=== PATIENT | male | born 1990 | race American Indian/Alaskan Native ===

== ENCOUNTER 2017-03-11 00:32 | Emergency (ER) | payer SELFPAY ==
[2017-03-11 01:13] LABS: Bilirubin,Urine NEG (Negative); Blood,Urine NEG (Negative); Ketones,Urine NEG (Negative); Leukocyte Esterase,Urine NEG (Negative); Mucus,Urine FEW /HPF; Nitrite,Urine NEG (Negative); Protein,Urine <15 mg/dL mg/dL (Negative); WBC,Urine < 1.0 /HPF (0.0-6.0)
--- NOTE | 2017-03-11 02:14 | Ultrasound Report ---
FINAL REPORT PROCEDURE: US TESTICULAR DOPPLER COMP TECHNIQUE: Real-time haq-scale and color flow Doppler sonography in multiple planes of the scrotum, testicles, and epididymes was performed. Velocity spectral waveform analysis Doppler imaging of the arterial inflow and venous outflow of the testicles was performed with image documentation. [place] [address] [place] [address] HISTORY: pain COMPARISON: No prior studies are available for comparison. FINDINGS: RIGHT TESTICLE: Size: 4.4 x 2.5 x 2.9 cm . Appearance: Normal size and echotexture . Arterial blood flow: Normal spectral waveforms, flow velocities and color flow images.. Venous blood flow: Normal spectral waveforms and color flow images. Right epididymis: Normal size and echotexture . Hydrocele: None . LEFT TESTICLE Size: 4.3 x 1.9 x 3.3 cm . Appearance: Normal size and echotexture . Arterial blood flow: Normal spectral waveforms, flow velocities and color flow images.. Venous blood flow: Normal spectral waveforms and color flow images. Leftepididymis: Normal size and echotexture . Hydrocele: None . IMPRESSION: Normal Examination
[2017-03-11] MEDS ORDERED: ROCEPHIN IM ONE (03:34)
[2017-03-11] MEDS ORDERED: XYLOCAINE 1% MPF 5 mL INFILTRATI ONE (03:34)
[2017-03-11] MEDS ORDERED: ZITHROMAX PO ONE (03:34)
--- NOTE | 2017-03-11 03:39 | Emergency Department Report ---
ED Male HPI - General Chief complaint: Urogenital-Male Stated complaint: PASIN WHEN URINATION Time Seen by Provider: 03/11/17 03:33 Source: patient Mode of arrival: Ambulatory Limitations: No Limitations - History of Present Illness Initial comments: penile sore dysuria frequency urgency x 2 month dx with chlamyidia 2 months ago failed to complete tx regimen Location: penis Radiation: none Severity scale (0 -10): 4 Quality: burning Consistency: intermittent Improves with: none Worsens with: urination, palpation discharge, dysuria, other (chancre). denies: swelling, mass, rash, urinary retention, blood in urine, fever, nausea/vomiting, incontinence - Related Data Sexually active: Yes Previous Rx's Medication Instructions Recorded Last Taken Type Doxycycline [Vibramycin CAP] 100 mg PO BID #20 capsule 03/11/17 Unknown Rx metroNIDAZOLE [Flagyl] 2,000 mg PO ONCE #4 tab 03/11/17 Unknown Rx Allergies Allergy/AdvReac Type Severity Reaction Status Date / Time No Known Allergies Allergy Verified 03/11/17 00:46 ED Review of Systems ROS: Stated complaint: PASIN WHEN URINATION Other details as noted in HPI Constitutional: denies: chills, fever Eyes: denies: eye pain, eye discharge, vision change ENT: denies: ear pain, throat pain Respiratory: denies: cough, shortness of breath, wheezing Cardiovascular: denies: chest pain, palpitations Endocrine: no symptoms reported Gastrointestinal: denies: abdominal pain, nausea, diarrhea Genitourinary: urgency, dysuria, frequency, discharge. denies: hematuria, testicular pain, testicular mass Musculoskeletal: denies: back pain, joint swelling, arthralgia Skin: lesions. denies: rash Neurological: denies: headache, weakness, paresthesias Psychiatric: denies: anxiety, depression Hematological/Lymphatic: denies: easy bleeding, easy bruising ED Past Medical Hx - Past Medical History Previous Medical History?: No - Surgical History Past Surgical History?: No - Social History Smoking Status: Current Some Day Smoker Substance Use Type: Marijuana - Medications Home Medications: Home Medications Medication Instructions Recorded Confirmed Last Taken Type Doxycycline [Vibramycin CAP] 100 mg PO BID #20 capsule 03/11/17 Unknown Rx metroNIDAZOLE [Flagyl] 2,000 mg PO ONCE #4 tab 03/11/17 Unknown Rx ED Physical Exam - General Limitations: No Limitations General appearance: alert, in no apparent distress - Head Head exam: Present: atraumatic, normocephalic - Eye Eye exam: Present: normal appearance - ENT ENT exam: Present: mucous membranes moist - Neck Neck exam: Present: normal inspection - Respiratory Respiratory exam: Present: normal lung sounds bilaterally. Absent: respiratory distress - Cardiovascular Cardiovascular Exam: Present: regular rate, normal rhythm. Absent: systolic murmur, diastolic murmur, rubs, gallop - GI/Abdominal GI/Abdominal exam: Present: soft, normal bowel sounds - exam: Present: circumcision, other (chancre sore penile shaft ). Absent: testicular tenderness, urethral discharge, scrotal swelling, vertical testicular lie External exam: Present: lesions. Absent: erythema, swelling, lacerations, ecchymosis, bleeding - Extremities Exam Extremities exam: Present: normal inspection - Back Exam Back exam: Present: normal inspection - Neurological Exam Neurological exam: Present: alert, oriented X3 - Psychiatric Psychiatric exam: Present: normal affect, normal mood - Skin Skin exam: Present: warm, dry, intact, normal color. Absent: rash ED Course Vital Signs 03/11/17 00:40 Temperature 98.6 F Pulse Rate 66 Respiratory 20 Rate Blood Pressure 137/76 [Right] O2 Sat by Pulse 99 Oximetry ED Medical Decision Making - Lab Data Laboratory Tests 03/11/17 00:55 Urine Color Yellow Urine Turbidity Clear Urine pH 6.0 Ur Specific [place] 1.025 Urine Protein <15 mg/dl Urine Glucose (UA) Neg Urine Ketones Neg Urine Blood Neg Urine Nitrite Neg Urine Bilirubin Neg Urine Urobilinogen 2.0 Ur Leukocyte Esterase Neg Urine WBC (Auto) < 1.0 Urine RBC (Auto) 1.0 U Epithel Cells (Auto) < 1.0 Urine Mucus Few - Medical Decision Making pt is a 26 y/o aam who presents for dysuria frequency and urgency x 2 month pt endorse dx with chlamydia 2 month " I took 2 pills and that's it now my partner has pain with sex and sometimes bleeding" pt's exam chancre sore penile shaft , no discharge, no lymph , no rash plan; tx for STD , dc with flagyl 2gm x 1, and doxycycline 100 mg po bid x 10 days, pt's partner is also seek treatment for std in [facility]. Critical care attestation.: If time is entered above; I have spent that time in minutes in the direct care of this critically ill patient, excluding procedure time. ED Disposition Clinical Impression: STI (sexually transmitted infection) Disposition: - TO HOME OR SELFCARE Is pt being admited?: No Does the pt Need Aspirin: No Condition: Good Instructions: Sexually Transmitted Diseases (ED) Additional Instructions: practice safe sex Prescriptions: Doxycycline [Vibramycin CAP] 100 mg PO BID #20 capsule metroNIDAZOLE [Flagyl] 2,000 mg PO ONCE #4 tab Referrals: PRIMARY CARE, [Primary Care Provider] - 3-5 Days Forms: Work/School Release Form(ED) Time of Disposition: 03:48
[2017-03-11 04:09] VITALS: BP 150/76
== END 2017-03-11 04:12 | disposition home or self-care (01) ==
LOC: ED 00:32
DX: A64 Unspecified sexually transmitted disease (principal); F17.210 Nicotine dependence, cigarettes, uncomplicated; F12.10 Cannabis abuse, uncomplicated
CPT/HCPCS: 81001; 93975; 96372; 99284; J0696